=== PATIENT | male | born 1970 | race Caucasian/White ===

== ENCOUNTER 2020-03-03 14:05 | Emergency (ER) | payer MEDICARE, MEDICAID ==
[~2020-03-03] VITALS: Ht 188 cm; Wt 77.0 kg
[~2020-03-03 14:05] MED LIST: BENZ1TAB7 PO; OLAN15TA3 PO; PAT0.1OS OP; POLOS OP
[2020-03-03 14:18] VITALS: BP 161/113
[2020-03-03] MEDS ORDERED: LORA-269 PO (14:57)
== END 2020-03-03 15:08 | disposition home or self-care (01) ==
LOC: ER 14:05
DX: F15.90 Other stimulant use, unspecified, uncomplicated (principal); F10.10 Alcohol abuse, uncomplicated; F20.9 Schizophrenia, unspecified; Z79.899 Other long term (current) drug therapy; Z00.00 Encounter for general adult medical examination without abnormal findings
CPT/HCPCS: 99281

== ENCOUNTER 2021-07-28 19:45 | Emergency (ER) | payer BC, MEDICAID ==
[~2021-07-28] VITALS: Ht 188 cm; Wt 86.4 kg
[~2021-07-28 19:45] MED LIST changes: +LORA-269 PO
[2021-07-28 19:48] VITALS: BP 123/82
== END 2021-07-28 21:14 | disposition home or self-care (01) ==
LOC: ER 19:46
DX: F15.90 Other stimulant use, unspecified, uncomplicated (principal); F20.9 Schizophrenia, unspecified; Z72.89 Other problems related to lifestyle; Z79.2 Long term (current) use of antibiotics; Z79.899 Other long term (current) drug therapy
CPT/HCPCS: 99281

== ENCOUNTER 2022-08-14 14:18 | Emergency (ER) | payer BC, MEDICAID ==
[~2022-08-14] VITALS: Ht 188 cm; Wt 83.6 kg
[~2022-08-14 14:18] MED LIST changes: -BENZ1TAB7 PO; +COG1T PO
[2022-08-14 14:32] VITALS: BP 158/92
== END 2022-08-14 18:32 | disposition home or self-care (01) ==
LOC: ER 14:18
DX: F15.20 Other stimulant dependence, uncomplicated (principal)
CPT/HCPCS: 99283